=== PATIENT | male | born 1985 | race Native Hawaiian/Other Pacific Islander ===

== ENCOUNTER 2018-08-02 15:33 | Emergency (ER) | payer OTHER ==
[~2018-08-02] VITALS: Ht 162.6 cm; Wt 63.5 kg
[2018-08-02 15:51] VITALS: BP 132/105; TEMP 99.3
== END 2018-08-02 16:50 | disposition home or self-care (01) ==
LOC: ED 15:33
DX: J11.1 Influenza due to unidentified influenza virus with other respiratory manifestations (principal)
CPT/HCPCS: 87502; 87651; 99283